=== PATIENT | female | born 1990 | race Two or more races ===

== ENCOUNTER 2018-12-19 17:15 | Emergency (ER) | payer MEDICAID, OTHER ==
[~2018-12-19] VITALS: Ht 162.6 cm; Wt 52.2 kg
[2018-12-19 17:37] VITALS: BP 94/45
[2018-12-19] MEDS ORDERED: HYDROcodone-ACET 10/325MG TAB PO ONE (20:30)
== END 2018-12-19 20:40 | disposition home or self-care (01) ==
LOC: ER 17:21
DX: S60.011A Contusion of right thumb without damage to nail, initial encounter (principal); Z88.6 Allergy status to analgesic agent; W22.8XXA Striking against or struck by other objects, initial encounter; Y93.89 Activity, other specified; Y92.512 Supermarket, store or market as the place of occurrence of the external cause; Y99.8 Other external cause status
CPT/HCPCS: 29125; 73140